=== PATIENT | male | born 1950 | race Caucasian/White ===

== ENCOUNTER 2016-10-23 17:14 | Inpatient (IN) | payer MEDICARE, SELFPAY ==
[~2016-10-23 17:14] MED LIST: COLACE100 M1 PO; KELP PO; KELP1 EACH PO; MAGNESIUM400 M2 PO; NORCO 5-325 TA1 EACH PO; NORCO PO; ODORLESS GARLI300 MG PO; PERCOCET 5-3251 EACH PO; PROBIOTIC1 EA10 PO; VITAMIN E400 UNI4 PO; Vitamin B6 PO; ZINC CHELATED50 M1 PO; [UNRECOGNIZED DRUG - OTHER] PO; [UNRECOGNIZED DRUG - OTHER] PO; [UNRECOGNIZED DRUG - OTHER] PO; calcium PO; magnesium PO; tumeric PO; vitamin B12 PO
[2016-10-23] MEDS ORDERED: [UNRECOGNIZED DRUG - OTHER] PO (21:13)
[2016-10-23] MEDS ORDERED: D (21:13)
--- NOTE | 2016-10-23 21:15 | NUR ---
VIRTUAL CARE NOTE: PT. IN BED, MEDICATION AND SUPPLEMENTS REVEIEWED WITH PT, SO THIS RN CAN NOTIFIED PHYSICIAN FOR ORDERS. THIS NURSE INFORMED THE PT. THAT WE HAVE TO HAVE ORDERS FOR THE MEDICATIONS HERE AND THAT HE IS NOT TO TAKE ANYTHING OUTSIDE OF WHAT THE DOCTOR ORDERS WITHOUT A DOCTOR ORDER. INSTRUCTED TO CALL FOR FURTHER NEEDS. STATES VERBAL AGREEMENT.
[2016-10-23] MEDS ORDERED: COLON HERBAL C1 EACH PO (21:16)
[2016-10-23] MEDS ORDERED: SYNTHROID50 MC1 PO (21:17)
[2016-10-23] MEDS ORDERED: FERROUS SULFAT325 MG PO (21:17)
[2016-10-23 23:24] LABS: ABG CO2 ARTERIAL 30 mmol/L (21-27); ARTERIAL BLD GAS O2 SATURATION 91 % (95-98); ARTERIAL BLOOD GAS PCO2 35 mmHg (32-45); ARTERIAL PO2 60 mmHg (70-100); BICARBONATE 29 mmol/L (21-28); BLOOD GAS BASE EXCESS 6 mM/L (-/+3); PH 7.53 Units (7.35-7.45)
[2016-10-24 01:05] LABS: INR 1.2 INR (0.9-1.1); PROTHROMBIN TIME 13.6 SECONDS (9.0-13.6)
[2016-10-24 01:55] LABS: PROCALCITONIN 0.62 ng/ml (0.05-0.09)
[2016-10-24 05:46] LABS: BASO % 0.1 % (0-2); EOS % 0.4 % (0-7); IMMATURE GRANULOCYTES ABSOLUTE 0.05 tho/cmm (0-0.03); IMMATURE GRANULOCYTES PERCENT 0.6 % (0-0.3); LYMPH % 5.1 % (20-45); LYMPH ABSOLUTE COUNT 0.4 tho/cmm (0.8-4.5); MCV (MEAN CELL VOLUME) 80.1 fl (82.0-96.0); MEAN PLATELET VOLUME 7.2 cmc (9.4-12.4); MONO % 7.1 % (0-12); MONOCYTE ABSOLUTE COUNT 0.6 tho/cmm (0.0-1.2); NEUTROPHIL ABSOLUTE COUNT 7.3 tho/cmm (1.6-8.0); NEUTROPHIL-AUTOMATED 7.3 tho/cmm (1.6-8.0); NEUTROPHILS % 86.7 % (40-80); PLATELET COUNT 401 tho/cmm (150-450); RED BLOOD COUNT 1.81 mil/cmm (4.40-5.70); RED CELL DISTRIBUTION WIDTH 14.2 % (12.4-16.4)
[2016-10-24 06:11] LABS: TSH-THYROID STIMULATING HORM. 6.06 uIU/ml (0.40-3.80)
[2016-10-24 06:53] LABS: BASO % 0.1 % (0-2); EOS % 0.3 % (0-7); IMMATURE GRANULOCYTES ABSOLUTE 0.07 tho/cmm (0-0.03); IMMATURE GRANULOCYTES PERCENT 0.7 % (0-0.3); LYMPH % 5.6 % (20-45); LYMPH ABSOLUTE COUNT 0.5 tho/cmm (0.8-4.5); MCV (MEAN CELL VOLUME) 80.4 fl (82.0-96.0); MEAN PLATELET VOLUME 7.7 cmc (9.4-12.4); MONO % 6.5 % (0-12); MONOCYTE ABSOLUTE COUNT 0.6 tho/cmm (0.0-1.2); NEUTROPHIL ABSOLUTE COUNT 8.4 tho/cmm (1.6-8.0); NEUTROPHIL-AUTOMATED 8.4 tho/cmm (1.6-8.0); NEUTROPHILS % 86.8 % (40-80); PLATELET COUNT 545 tho/cmm (150-450); RED BLOOD COUNT 1.89 mil/cmm (4.40-5.70); RED CELL DISTRIBUTION WIDTH 14.4 % (12.4-16.4); WHITE BLOOD COUNT 9.7 tho/cmm (4.0-10.0)
[2016-10-24 06:56] LABS: MCHC MEAN CORPUSCULAR HGB CONC 33.8 % (32.0-36.0)
[2016-10-24 06:57] LABS: HCT-HEMATOCRIT 14.5 % (36.0-53.5); HGB-HEMOGLOBIN 4.9 gm/dl (13.5-17.0)
[2016-10-24 06:58] LABS: HCT-HEMATOCRIT 15.2 % (36.0-53.5); HGB-HEMOGLOBIN 5.1 gm/dl (13.5-17.0); MCH (MEAN CORPUSCULAR HGB) 26.9 pg (28.0-32.0); MCHC MEAN CORPUSCULAR HGB CONC 33.6 % (32.0-36.0)
[2016-10-24 07:07] LABS: ANION GAP 15 mmol/L (0-20); BLOOD UREA NITROGEN 41 mg/dl (6-24); CARBON DIOXIDE-VENOUS 27 mmol/L (22-32); CHLORIDE 91 mmol/l (96-110); CREATININE 2.38 mg/dl (0.60-1.30); GLUCOSE 101 mg/dL (70-110); POTASSIUM 4.5 mmol/L (3.7-5.1); SODIUM 128 mmol/L (135-145); eGFR VALUE FOR BLACK 31 mL/Min
[2016-10-24 07:08] LABS: ALB/GLOB RATIO 0.3 (0.8-2.0); ALBUMIN 1.7 g/dl (3.5-5.0); ALKALINE PHOSPHATASE 80 U/L (33-138); ALT/SGPT 11 U/L (12-78); AST/SGOT 12 U/L (10-40); BILIRUBIN,TOTAL 0.4 mg/dl (0.0-1.5); CALCIUM 7.6 mg/dl (8.5-10.5); FERRITIN 268 ng/ml (22-388)
[2016-10-24 07:36] LABS: WHITE BLOOD COUNT 8.5 tho/cmm (4.0-10.0)
[2016-10-24 07:41] LABS: ALB/GLOB RATIO 0.3 (0.8-2.0); ALBUMIN 1.7 g/dl (3.5-5.0); ALKALINE PHOSPHATASE 85 U/L (33-138); ALT/SGPT 10 U/L (12-78); ANION GAP 14 mmol/L (0-20); AST/SGOT 13 U/L (10-40); BILIRUBIN,TOTAL 0.4 mg/dl (0.0-1.5); BLOOD UREA NITROGEN 40 mg/dl (6-24); CALCIUM 7.7 mg/dl (8.5-10.5); CARBON DIOXIDE-VENOUS 26 mmol/L (22-32); CHLORIDE 91 mmol/l (96-110); CREATININE 2.33 mg/dl (0.60-1.30); FERRITIN 273 ng/ml (22-388); GLUCOSE 96 mg/dL (70-110); POTASSIUM 4.4 mmol/L (3.7-5.1); SODIUM 127 mmol/L (135-145); eGFR VALUE FOR BLACK 32 mL/Min
[2016-10-24 07:44] LABS: IRON 19 ug/dl (49-181); IRON BINDING CAPACITY 150 ug/dl (250-450)
[2016-10-24 07:45] LABS: TSH-THYROID STIMULATING HORM. 5.76 uIU/ml (0.40-3.80)
[2016-10-24 10:03] LABS: IRON 13 ug/dl (49-181); IRON BINDING CAPACITY 139 ug/dl (250-450)
[2016-10-24 21:20] LABS: URINE BILIRUBIN NEGATIVE (NEG); URINE BLOOD MODERATE (NEG); URINE GLUCOSE (UA) NEGATIVE (NEG); URINE KETONE NEGATIVE (NEG); URINE LEUKOCYTE ESTERASE NEGATIVE (NEG); URINE NITRITE NEGATIVE (NEG); URINE PROTEIN MODERATE (NEG)
[2016-10-24 21:21] LABS: URINE APPEARANCE HAZY; URINE COLOR YELLOW
[2016-10-24 21:28] LABS: URINE EPITHELIAL CELLS 0-3 /[HPF] (0-10); URINE RBC 50-60 /[HPF] (0-5)
[2016-10-24 21:42] LABS: URINE PRT/CR RATIO 1.58 Ratio (0.0-0.20); URINE TOTAL PROTEIN-RANDOM 120.3 mg/dl (<11.8)
[2016-10-24 22:54] LABS: ARTERIAL BLD GAS O2 SATURATION 88 % (95-98); ARTERIAL BLOOD GAS PCO2 32 mmHg (32-45); ARTERIAL PO2 55 mmHg (70-100); BLOOD GAS BASE EXCESS 1 mM/L (-/+3); PH 7.48 Units (7.35-7.45)
[2016-10-24 22:55] LABS: ABG CO2 ARTERIAL 25 mmol/L (21-27); BICARBONATE 24 mmol/L (21-28)
[2016-10-25 07:26] LABS: BASO % 0.1 % (0-2); IMMATURE GRANULOCYTES ABSOLUTE 0.14 tho/cmm (0-0.03); IMMATURE GRANULOCYTES PERCENT 1.3 % (0-0.3); LYMPH % 3.7 % (20-45); LYMPH ABSOLUTE COUNT 0.4 tho/cmm (0.8-4.5); MCV (MEAN CELL VOLUME) 80.6 fl (82.0-96.0); MEAN PLATELET VOLUME 8.2 cmc (9.4-12.4); MONO % 1.8 % (0-12); MONOCYTE ABSOLUTE COUNT 0.2 tho/cmm (0.0-1.2); NEUTROPHIL ABSOLUTE COUNT 10.2 tho/cmm (1.6-8.0); NEUTROPHIL-AUTOMATED 10.2 tho/cmm (1.6-8.0); NEUTROPHILS % 93.1 % (40-80); PLATELET COUNT 485 tho/cmm (150-450); RED CELL DISTRIBUTION WIDTH 14.3 % (12.4-16.4); WHITE BLOOD COUNT 10.9 tho/cmm (4.0-10.0)
[2016-10-25 07:29] LABS: HCT-HEMATOCRIT 28.3 % (36.0-53.5); HGB-HEMOGLOBIN 9.9 gm/dl (13.5-17.0); MCH (MEAN CORPUSCULAR HGB) 28.2 pg (28.0-32.0); RED BLOOD COUNT 3.51 mil/cmm (4.40-5.70)
[2016-10-25 07:36] LABS: INR 1.1 INR (0.9-1.1); PROTHROMBIN TIME 13.3 SECONDS (9.0-13.6)
[2016-10-25 08:11] LABS: ALB/GLOB RATIO 0.3 (0.8-2.0); ALBUMIN 1.7 g/dl (3.5-5.0); ALKALINE PHOSPHATASE 92 U/L (33-138); ALT/SGPT 10 U/L (12-78); ANION GAP 16 mmol/L (0-20); AST/SGOT 14 U/L (10-40); BLOOD UREA NITROGEN 37 mg/dl (6-24); CARBON DIOXIDE-VENOUS 24 mmol/L (22-32); CHLORIDE 93 mmol/l (96-110); CREATININE 2.29 mg/dl (0.60-1.30); GGT - GAMMA GT 39 U/L (8-85); GLUCOSE 126 mg/dL (70-110); POTASSIUM 4.6 mmol/L (3.7-5.1); SODIUM 128 mmol/L (135-145); eGFR VALUE FOR BLACK 33 mL/Min
[2016-10-25 08:12] LABS: BILIRUBIN,TOTAL 0.7 mg/dl (0.0-1.5)
[2016-10-25 15:16] LABS: BAL APPEARANCE CLOUDY (CLEAR); BAL COLOR RED (COLORLESS)
[2016-10-25 16:02] LABS: Angiotensin-Converting Enzyme 16 U/L (4-60)
[2016-10-25 16:59] LABS: BAL LYMPHOCYTES 3 %; BAL NEUTROPHILS 64 %
[2016-10-26 05:23] LABS: HGB-HEMOGLOBIN 8.2 gm/dl (13.5-17.0); IMMATURE GRANULOCYTES ABSOLUTE 0.06 tho/cmm (0-0.03); IMMATURE GRANULOCYTES PERCENT 0.5 % (0-0.3); LYMPH % 4.5 % (20-45); LYMPH ABSOLUTE COUNT 0.6 tho/cmm (0.8-4.5); MCH (MEAN CORPUSCULAR HGB) 27.9 pg (28.0-32.0); MCHC MEAN CORPUSCULAR HGB CONC 34.5 % (32.0-36.0); MEAN PLATELET VOLUME 8.3 cmc (9.4-12.4); MONO % 2.4 % (0-12); MONOCYTE ABSOLUTE COUNT 0.3 tho/cmm (0.0-1.2); NEUTROPHIL ABSOLUTE COUNT 11.4 tho/cmm (1.6-8.0); NEUTROPHIL-AUTOMATED 11.4 tho/cmm (1.6-8.0); NEUTROPHILS % 92.6 % (40-80); PLATELET COUNT 430 tho/cmm (150-450); RED BLOOD COUNT 2.94 mil/cmm (4.40-5.70); RED CELL DISTRIBUTION WIDTH 14.7 % (12.4-16.4); WHITE BLOOD COUNT 12.3 tho/cmm (4.0-10.0)
[2016-10-26 05:29] LABS: HCT-HEMATOCRIT 23.8 % (36.0-53.5)
[2016-10-26 05:39] LABS: ALB/GLOB RATIO 0.4 (0.8-2.0); ALBUMIN 1.8 g/dl (3.5-5.0); ALKALINE PHOSPHATASE 71 U/L (33-138); ALT/SGPT 24 U/L (12-78); ANION GAP 14 mmol/L (0-20); AST/SGOT 34 U/L (10-40); BILIRUBIN,TOTAL 0.6 mg/dl (0.0-1.5); BLOOD UREA NITROGEN 53 mg/dl (6-24); CALCIUM 7.7 mg/dl (8.5-10.5); CARBON DIOXIDE-VENOUS 27 mmol/L (22-32); CHLORIDE 92 mmol/l (96-110); CREATININE 2.38 mg/dl (0.60-1.30); GLUCOSE 116 mg/dL (70-110); PHOSPHOROUS 3.3 mg/dl (2.5-4.9); POTASSIUM 4.5 mmol/L (3.7-5.1); SODIUM 128 mmol/L (135-145); eGFR VALUE FOR BLACK 31 mL/Min
[2016-10-27 05:53] LABS: BASO % 0.1 % (0-2); HGB-HEMOGLOBIN 7.7 gm/dl (13.5-17.0); IMMATURE GRANULOCYTES ABSOLUTE 0.09 tho/cmm (0-0.03); IMMATURE GRANULOCYTES PERCENT 0.7 % (0-0.3); LYMPH % 3.5 % (20-45); LYMPH ABSOLUTE COUNT 0.5 tho/cmm (0.8-4.5); MCH (MEAN CORPUSCULAR HGB) 27.9 pg (28.0-32.0); MCHC MEAN CORPUSCULAR HGB CONC 33.9 % (32.0-36.0); MCV (MEAN CELL VOLUME) 82.2 fl (82.0-96.0); MEAN PLATELET VOLUME 8.1 cmc (9.4-12.4); MONO % 3.6 % (0-12); MONOCYTE ABSOLUTE COUNT 0.5 tho/cmm (0.0-1.2); NEUTROPHIL ABSOLUTE COUNT 12.1 tho/cmm (1.6-8.0); NEUTROPHIL-AUTOMATED 12.1 tho/cmm (1.6-8.0); NEUTROPHILS % 92.1 % (40-80); PLATELET COUNT 382 tho/cmm (150-450); RED BLOOD COUNT 2.76 mil/cmm (4.40-5.70); WHITE BLOOD COUNT 13.2 tho/cmm (4.0-10.0)
[2016-10-27 05:55] LABS: INR 1.2 INR (0.9-1.1); PROTHROMBIN TIME 14.6 SECONDS (9.0-13.6)
[2016-10-27 05:57] LABS: HCT-HEMATOCRIT 22.7 % (36.0-53.5)
[2016-10-27 06:06] LABS: ALBUMIN 1.8 g/dl (3.5-5.0); ANION GAP 13 mmol/L (0-20); BLOOD UREA NITROGEN 63 mg/dl (6-24); CALCIUM 7.7 mg/dl (8.5-10.5); CARBON DIOXIDE-VENOUS 26 mmol/L (22-32); CHLORIDE 93 mmol/l (96-110); CREATININE 2.41 mg/dl (0.60-1.30); GLUCOSE 127 mg/dL (70-110); PHOSPHOROUS 3.2 mg/dl (2.5-4.9); POTASSIUM 4.2 mmol/L (3.7-5.1); SODIUM 128 mmol/L (135-145); eGFR VALUE FOR BLACK 31 mL/Min
[2016-10-28 05:25] LABS: IMMATURE GRANULOCYTES ABSOLUTE 0.12 tho/cmm (0-0.03); LYMPH % 5.3 % (20-45); LYMPH ABSOLUTE COUNT 0.6 tho/cmm (0.8-4.5); MCH (MEAN CORPUSCULAR HGB) 27.9 pg (28.0-32.0); MCHC MEAN CORPUSCULAR HGB CONC 33.5 % (32.0-36.0); MCV (MEAN CELL VOLUME) 83.3 fl (82.0-96.0); MEAN PLATELET VOLUME 8.3 cmc (9.4-12.4); MONO % 2.7 % (0-12); MONOCYTE ABSOLUTE COUNT 0.3 tho/cmm (0.0-1.2); NEUTROPHIL ABSOLUTE COUNT 10.9 tho/cmm (1.6-8.0); NEUTROPHIL-AUTOMATED 10.9 tho/cmm (1.6-8.0); PLATELET COUNT 279 tho/cmm (150-450); RED BLOOD COUNT 2.51 mil/cmm (4.40-5.70); RED CELL DISTRIBUTION WIDTH 15.3 % (12.4-16.4)
[2016-10-28 05:36] LABS: ANION GAP 14 mmol/L (0-20); BLOOD UREA NITROGEN 71 mg/dl (6-24); CALCIUM 7.4 mg/dl (8.5-10.5); CARBON DIOXIDE-VENOUS 23 mmol/L (22-32); CHLORIDE 100 mmol/l (96-110); CREATININE 2.29 mg/dl (0.60-1.30); GLUCOSE 133 mg/dL (70-110); PHOSPHOROUS 2.8 mg/dl (2.5-4.9); POTASSIUM 4.3 mmol/L (3.7-5.1); SODIUM 133 mmol/L (135-145); eGFR VALUE FOR BLACK 33 mL/Min
[2016-10-28 05:37] LABS: HCT-HEMATOCRIT 20.9 % (36.0-53.5)
[2016-10-29 06:06] LABS: BASO % 0.1 % (0-2); HCT-HEMATOCRIT 25.5 % (36.0-53.5); IMMATURE GRANULOCYTES ABSOLUTE 0.16 tho/cmm (0-0.03); IMMATURE GRANULOCYTES PERCENT 1.3 % (0-0.3); LYMPH % 6.3 % (20-45); LYMPH ABSOLUTE COUNT 0.8 tho/cmm (0.8-4.5); MCHC MEAN CORPUSCULAR HGB CONC 34.5 % (32.0-36.0); MCV (MEAN CELL VOLUME) 82.8 fl (82.0-96.0); MEAN PLATELET VOLUME 8.5 cmc (9.4-12.4); MONO % 1.6 % (0-12); MONOCYTE ABSOLUTE COUNT 0.2 tho/cmm (0.0-1.2); NEUTROPHIL ABSOLUTE COUNT 11.3 tho/cmm (1.6-8.0); NEUTROPHIL-AUTOMATED 11.3 tho/cmm (1.6-8.0); NEUTROPHILS % 90.7 % (40-80); PLATELET COUNT 273 tho/cmm (150-450); RED BLOOD COUNT 3.08 mil/cmm (4.40-5.70); RED CELL DISTRIBUTION WIDTH 15.8 % (12.4-16.4); WHITE BLOOD COUNT 12.5 tho/cmm (4.0-10.0)
[2016-10-29 06:07] LABS: HGB-HEMOGLOBIN 8.8 gm/dl (13.5-17.0); MCH (MEAN CORPUSCULAR HGB) 28.5 pg (28.0-32.0)
[2016-10-29 06:16] LABS: ANION GAP 13 mmol/L (0-20); BLOOD UREA NITROGEN 71 mg/dl (6-24); CALCIUM 8.2 mg/dl (8.5-10.5); CARBON DIOXIDE-VENOUS 23 mmol/L (22-32); CHLORIDE 102 mmol/l (96-110); GLUCOSE 127 mg/dL (70-110); MAGNESIUM 1.9 mg/dl (1.8-2.6); PHOSPHOROUS 3.1 mg/dl (2.5-4.9); POTASSIUM 4.3 mmol/L (3.7-5.1); SODIUM 134 mmol/L (135-145); eGFR VALUE FOR BLACK 33 mL/Min
[2016-10-30 05:39] LABS: BASO % 0.1 % (0-2); HGB-HEMOGLOBIN 8.5 gm/dl (13.5-17.0); IMMATURE GRANULOCYTES ABSOLUTE 0.39 tho/cmm (0-0.03); IMMATURE GRANULOCYTES PERCENT 2.4 % (0-0.3); LYMPH ABSOLUTE COUNT 0.8 tho/cmm (0.8-4.5); MCH (MEAN CORPUSCULAR HGB) 28.1 pg (28.0-32.0); MCV (MEAN CELL VOLUME) 82.8 fl (82.0-96.0); MEAN PLATELET VOLUME 8.6 cmc (9.4-12.4); MONO % 5.9 % (0-12); NEUTROPHIL ABSOLUTE COUNT 14.3 tho/cmm (1.6-8.0); NEUTROPHIL-AUTOMATED 14.3 tho/cmm (1.6-8.0); NEUTROPHILS % 86.6 % (40-80); PLATELET COUNT 266 tho/cmm (150-450); RED BLOOD COUNT 3.02 mil/cmm (4.40-5.70); RED CELL DISTRIBUTION WIDTH 16.1 % (12.4-16.4); WHITE BLOOD COUNT 16.5 tho/cmm (4.0-10.0)
[2016-10-30 05:53] LABS: ALBUMIN 2.7 g/dl (3.5-5.0); ANION GAP 15 mmol/L (0-20); BLOOD UREA NITROGEN 75 mg/dl (6-24); CALCIUM 7.9 mg/dl (8.5-10.5); CARBON DIOXIDE-VENOUS 24 mmol/L (22-32); CHLORIDE 104 mmol/l (96-110); GLUCOSE 118 mg/dL (70-110); PHOSPHOROUS 2.5 mg/dl (2.5-4.9); POTASSIUM 4.8 mmol/L (3.7-5.1); SODIUM 138 mmol/L (135-145); eGFR VALUE FOR BLACK 33 mL/Min
[2016-10-31 04:57] LABS: BASO % 0.1 % (0-2); EOS % 0.1 % (0-7); HCT-HEMATOCRIT 27.4 % (36.0-53.5); HGB-HEMOGLOBIN 9.3 gm/dl (13.5-17.0); IMMATURE GRANULOCYTES ABSOLUTE 0.58 tho/cmm (0-0.03); LYMPH % 10.8 % (20-45); LYMPH ABSOLUTE COUNT 2.1 tho/cmm (0.8-4.5); MCH (MEAN CORPUSCULAR HGB) 28.7 pg (28.0-32.0); MCHC MEAN CORPUSCULAR HGB CONC 33.9 % (32.0-36.0); MCV (MEAN CELL VOLUME) 84.6 fl (82.0-96.0); MEAN PLATELET VOLUME 8.5 cmc (9.4-12.4); MONOCYTE ABSOLUTE COUNT 0.2 tho/cmm (0.0-1.2); NEUTROPHIL ABSOLUTE COUNT 16.5 tho/cmm (1.6-8.0); NEUTROPHIL-AUTOMATED 16.5 tho/cmm (1.6-8.0); PLATELET COUNT 283 tho/cmm (150-450); RED BLOOD COUNT 3.24 mil/cmm (4.40-5.70); RED CELL DISTRIBUTION WIDTH 16.7 % (12.4-16.4); WHITE BLOOD COUNT 19.4 tho/cmm (4.0-10.0)
[2016-10-31 05:24] LABS: ANION GAP 13 mmol/L (0-20); BLOOD UREA NITROGEN 67 mg/dl (6-24); CALCIUM 7.9 mg/dl (8.5-10.5); CARBON DIOXIDE-VENOUS 26 mmol/L (22-32); CHLORIDE 102 mmol/l (96-110); CREATININE 2.35 mg/dl (0.60-1.30); GLUCOSE 91 mg/dL (70-110); MAGNESIUM 1.8 mg/dl (1.8-2.6); PHOSPHOROUS 2.7 mg/dl (2.5-4.9); POTASSIUM 4.6 mmol/L (3.7-5.1); SODIUM 136 mmol/L (135-145); eGFR VALUE FOR BLACK 32 mL/Min
[2016-11-01 05:16] LABS: BASO % 0.1 % (0-2); EOS % 0.1 % (0-7); HCT-HEMATOCRIT 25.8 % (36.0-53.5); HGB-HEMOGLOBIN 8.5 gm/dl (13.5-17.0); IMMATURE GRANULOCYTES ABSOLUTE 0.61 tho/cmm (0-0.03); LYMPH % 3.8 % (20-45); LYMPH ABSOLUTE COUNT 0.6 tho/cmm (0.8-4.5); MCH (MEAN CORPUSCULAR HGB) 28.2 pg (28.0-32.0); MCHC MEAN CORPUSCULAR HGB CONC 32.9 % (32.0-36.0); MCV (MEAN CELL VOLUME) 85.7 fl (82.0-96.0); MEAN PLATELET VOLUME 8.5 cmc (9.4-12.4); MONO % 5.9 % (0-12); MONOCYTE ABSOLUTE COUNT 0.9 tho/cmm (0.0-1.2); NEUTROPHIL ABSOLUTE COUNT 13.1 tho/cmm (1.6-8.0); NEUTROPHIL-AUTOMATED 13.1 tho/cmm (1.6-8.0); NEUTROPHILS % 86.1 % (40-80); PLATELET COUNT 262 tho/cmm (150-450); RED BLOOD COUNT 3.01 mil/cmm (4.40-5.70); RED CELL DISTRIBUTION WIDTH 17.2 % (12.4-16.4); WHITE BLOOD COUNT 15.2 tho/cmm (4.0-10.0)
[2016-11-01 05:31] LABS: ANION GAP 13 mmol/L (0-20); BLOOD UREA NITROGEN 71 mg/dl (6-24); CALCIUM 7.8 mg/dl (8.5-10.5); CARBON DIOXIDE-VENOUS 27 mmol/L (22-32); CHLORIDE 103 mmol/l (96-110); CREATININE 2.34 mg/dl (0.60-1.30); GLUCOSE 96 mg/dL (70-110); MAGNESIUM 1.8 mg/dl (1.8-2.6); PHOSPHOROUS 3.1 mg/dl (2.5-4.9); POTASSIUM 4.7 mmol/L (3.7-5.1); SODIUM 138 mmol/L (135-145); eGFR VALUE FOR BLACK 32 mL/Min
[2016-11-02 05:31] LABS: BASO % 0.1 % (0-2); HCT-HEMATOCRIT 25.8 % (36.0-53.5); HGB-HEMOGLOBIN 8.6 gm/dl (13.5-17.0); IMMATURE GRANULOCYTES ABSOLUTE 0.45 tho/cmm (0-0.03); IMMATURE GRANULOCYTES PERCENT 3.1 % (0-0.3); LYMPH % 3.5 % (20-45); LYMPH ABSOLUTE COUNT 0.5 tho/cmm (0.8-4.5); MCH (MEAN CORPUSCULAR HGB) 28.6 pg (28.0-32.0); MCHC MEAN CORPUSCULAR HGB CONC 33.3 % (32.0-36.0); MCV (MEAN CELL VOLUME) 85.7 fl (82.0-96.0); MEAN PLATELET VOLUME 8.6 cmc (9.4-12.4); MONO % 5.8 % (0-12); MONOCYTE ABSOLUTE COUNT 0.9 tho/cmm (0.0-1.2); NEUTROPHIL ABSOLUTE COUNT 12.9 tho/cmm (1.6-8.0); NEUTROPHIL-AUTOMATED 12.9 tho/cmm (1.6-8.0); NEUTROPHILS % 87.5 % (40-80); PLATELET COUNT 275 tho/cmm (150-450); RED BLOOD COUNT 3.01 mil/cmm (4.40-5.70); RED CELL DISTRIBUTION WIDTH 17.3 % (12.4-16.4); WHITE BLOOD COUNT 14.7 tho/cmm (4.0-10.0)
[2016-11-02 06:01] LABS: ANION GAP 11 mmol/L (0-20); BLOOD UREA NITROGEN 66 mg/dl (6-24); CARBON DIOXIDE-VENOUS 28 mmol/L (22-32); CHLORIDE 102 mmol/l (96-110); CREATININE 2.25 mg/dl (0.60-1.30); GLUCOSE 106 mg/dL (70-110); POTASSIUM 4.8 mmol/L (3.7-5.1); SODIUM 136 mmol/L (135-145); eGFR VALUE FOR BLACK 34 mL/Min
[2016-11-03 06:37] LABS: ANION GAP 13 mmol/L (0-20); BLOOD UREA NITROGEN 67 mg/dl (6-24); CALCIUM 7.5 mg/dl (8.5-10.5); CARBON DIOXIDE-VENOUS 26 mmol/L (22-32); CHLORIDE 102 mmol/l (96-110); CREATININE 2.34 mg/dl (0.60-1.30); GLUCOSE 79 mg/dL (70-110); POTASSIUM 4.1 mmol/L (3.7-5.1); SODIUM 137 mmol/L (135-145); eGFR VALUE FOR BLACK 32 mL/Min
[2016-11-03] MEDS ORDERED: CLONAZEPAM1 M2 PO (10:35)
[2016-11-03] MEDS ORDERED: BACTRIM DS TAB1 EAC2 PO (10:36)
[2016-11-03] MEDS ORDERED: NYSTATIN100000 UNI PO (10:38)
[2016-11-03] MEDS ORDERED: PRINIVIL5 M1 PO (10:38)
[2016-11-03] MEDS ORDERED: OMEPRAZOLE20 M3 PO (10:39)
[2016-11-03] MEDS ORDERED: DELTASONE20 MG PO (10:40)
[2016-11-03] MEDS ORDERED: TYLENOL325 M2 PO (10:44)
== END 2016-11-03 17:36 | DRG 542 ==
LOC: 5WD 17:14 → CCU 10-24 13:29 → 5WE 10-29 16:00
PROVIDERS: Internal Medicine Nephrology; Internal Medicine Pulmonary Disease; Radiology Diagnostic Radiology; ADMIT Internal Medicine
PROC: 30233N1 Transfusion of Nonautologous Red Blood Cells into Peripheral Vein, Percutaneous Approach (ICD-10-PCS; 2016-10-24)
PROC: 0B968ZX Drainage of Right Lower Lobe Bronchus, Via Natural or Artificial Opening Endoscopic, Diagnostic (ICD-10-PCS; principal; 2016-10-25)
PROC: 0BB68ZX Excision of Right Lower Lobe Bronchus, Via Natural or Artificial Opening Endoscopic, Diagnostic (ICD-10-PCS; 2016-10-25)
PROC: 6A551Z3 Pheresis of Plasma, Multiple (ICD-10-PCS; 2016-10-26)
PROC: 0TB03ZX Excision of Right Kidney, Percutaneous Approach, Diagnostic (ICD-10-PCS; 2016-10-26)
PROC: 02H633Z Insertion of Infusion Device into Right Atrium, Percutaneous Approach (ICD-10-PCS; 2016-10-26)
PROC: B214YZZ Fluoroscopy of Right Heart using Other Contrast (ICD-10-PCS; 2016-10-26)
PROC: 07DR3ZX Extraction of Iliac Bone Marrow, Percutaneous Approach, Diagnostic (ICD-10-PCS; 2016-10-26)
PROC: 5A1D60Z (ICD-10-PCS; 2016-10-27)
DX: M31.31 Wegener's granulomatosis with renal involvement (principal); J96.91 Respiratory failure, unspecified with hypoxia; N17.9 Acute kidney failure, unspecified; E46 Unspecified protein-calorie malnutrition; E87.1 Hypo-osmolality and hyponatremia; E88.09 Other disorders of plasma-protein metabolism, not elsewhere classified; K92.2 Gastrointestinal hemorrhage, unspecified; G62.9 Polyneuropathy, unspecified; R04.89 Hemorrhage from other sites in respiratory passages; Z68.22 Body mass index [BMI] 22.0-22.9, adult; K58.9 Irritable bowel syndrome, unspecified; F41.9 Anxiety disorder, unspecified; E03.9 Hypothyroidism, unspecified; Z87.891 Personal history of nicotine dependence; Z90.49 Acquired absence of other specified parts of digestive tract; D50.9 Iron deficiency anemia, unspecified; Z85.828 Personal history of other malignant neoplasm of skin; D47.3 Essential (hemorrhagic) thrombocythemia; D63.8 Anemia in other chronic diseases classified elsewhere; I77.6 Arteritis, unspecified; I12.9 Hypertensive chronic kidney disease with stage 1 through stage 4 chronic kidney disease, or unspecified chronic kidney disease; N18.3 Chronic kidney disease, stage 3 (moderate); D63.1 Anemia in chronic kidney disease
CPT/HCPCS: A9540; C1752; C1830; C8929; G0364; J0456; J0610; J0690; J0885; J1200; J1756; J1940; J1956; J2250; J2405; J2930; J3010; J7030; J7050; J7512; J9310; P9016; P9017; P9045; P9047